=== PATIENT | male | born 1940 | race American Indian/Alaskan Native ===

== ENCOUNTER 2018-05-17 19:56 | Emergency (ER) | payer MEDICARE ==
[2018-05-17 21:39] LABS: Basophils # (Auto) 0.2 K/mm3 (0.0-0.1); Basophils % (Auto) 2.3 % (0.0-1.8); Eosinophils # (Auto) 0.3 K/mm3 (0.0-0.4); Eosinophils % (Auto) 4.2 % (0.0-4.3); Hemoglobin 12.2 gm/dl (11.8-15.2); Lymphocytes # (Auto) 2.7 K/mm3 (1.2-5.4); Lymphocytes % (Auto) 39.5 % (13.4-35.0); Mean Corpuscular HGB Conc 33 % (32-34); Mean Corpuscular Volume 84 fl (84-94); Monocytes # (Auto) 0.4 K/mm3 (0.0-0.8); Monocytes % (Auto) 6.4 % (0.0-7.3); Platelet Count 271 K/mm3 (140-440); Red Blood Count 4.42 M/mm3 (3.65-5.03); Red Cell Distribution Width 14.8 % (13.2-15.2)
[2018-05-17 22:15] LABS: Calcium 9.1 mg/dL (8.4-10.2)
[2018-05-17] MEDS ORDERED: NACL 0.9% IR ONE (23:38)
--- NOTE | 2018-05-17 23:39 | Emergency Department Report ---
ED General Adult HPI - General Chief complaint: Urogenital-Male Stated complaint: RECENTLY HAD A STROKE/URINATING BLOOD Time Seen by Provider: 05/17/18 23:25 Source: patient, family, RN notes reviewed Mode of arrival: Ambulatory Limitations: No Limitations - History of Present Illness Initial comments: This is a 77-year-old gentleman. The patient follows with the [facility]. He has a remote history of stroke, reported pancreatic cancer, hypertension and currently takes Plavix and aspirin. He presents to the emergency room with a complaint of painless hematuria. It's been going on for the past day or so. He denies headache, neck pain, chest pain, abdominal pain, shortness of breath, vomiting, dysuria, frequency, testicular pain. He denies hematemesis, bright red blood per rectum. -: Gradual, days(s) Severity scale (0 -10): 0 Consistency: constant Improves with: none Worsens with: none Associated Symptoms: denies other symptoms - Related Data Allergies Allergy/AdvReac Type Severity Reaction Status Date / Time No Known Allergies Allergy Unverified 05/17/18 20:59 ED Review of Systems ROS: Stated complaint: RECENTLY HAD A STROKE/URINATING BLOOD Other details as noted in HPI Constitutional: denies: fever Eyes: denies: vision change ENT: denies: epistaxis Respiratory: denies: cough Cardiovascular: denies: chest pain Gastrointestinal: denies: abdominal pain, nausea, vomiting Genitourinary: hematuria. denies: urgency, dysuria Musculoskeletal: denies: back pain Skin: denies: lesions Neurological: weakness (chronic weakness) ED Past Medical Hx - Past Medical History Hx CVA: Yes (02/2018) Additional medical history: pancreatic CA - Social History Smoking Status: Former Smoker ED Physical Exam - General Limitations: No Limitations General appearance: alert, in no apparent distress - Head Head exam: Present: atraumatic, normocephalic - Eye Eye exam: Present: normal appearance, EOMI. Absent: nystagmus - ENT ENT exam: Present: normal exam, normal orophraynx, mucous membranes moist, normal external ear exam - Neck Neck exam: Present: normal inspection, full ROM. Absent: tenderness, meningismus - Respiratory Respiratory exam: Present: normal lung sounds bilaterally. Absent: respiratory distress - Cardiovascular Cardiovascular Exam: Present: regular rate, normal rhythm, normal heart sounds. Absent: bradycardia, tachycardia, irregular rhythm, systolic murmur, diastolic murmur, rubs, gallop - GI/Abdominal GI/Abdominal exam: Present: soft. Absent: distended, tenderness, guarding, rebound, rigid, pulsatile mass - Rectal Rectal exam: Present: deferred - exam: Present: normal inspection (chaperoned by nurse Perfecto Rich), other (blood is noted coming from the urethral meatus) External exam: Present: normal external exam, other (there is no testicular tenderness. There is normal testicular lie bilaterally. There is normal cremasteric reflex bilaterally.). Absent: erythema, swelling, lesions, lacerations, ecchymosis - Extremities Exam Extremities exam: Present: normal inspection, full ROM, other (2+ pulses noted in the bilateral upper, lower extremities. Compartments soft. No long bony tenderness. The pelvis is stable.). Absent: pedal edema, joint swelling, calf tenderness - Back Exam Back exam: Present: normal inspection, full ROM. Absent: tenderness, CVA tenderness (R), paraspinal tenderness, vertebral tenderness - Neurological Exam Neurological exam: Present: alert, oriented X3, CN II-XII intact, normal gait, other (Extraocular movements intact. Tongue midline. No facial droop. Facial sensation intact to light touch in the V1, V2, V3 distribution bilaterally. 5 and 5 strength in 4 extremities.. Sensation is intact to light touch in 4 extremities.). Absent: motor sensory deficit - Psychiatric Psychiatric exam: Present: normal affect, normal mood - Skin Skin exam: Present: warm, dry, intact, normal color. Absent: rash ED Course Vital Signs 05/17/18 05/17/18 05/17/18 20:52 22:53 22:56 Temperature 98.2 F Pulse Rate 80 74 73 Respiratory 18 18 20 Rate Blood Pressure 128/67 155/79 O2 Sat by Pulse 98 99 99 Oximetry 05/17/18 05/17/18 05/17/18 23:00 23:16 23:30 Temperature Pulse Rate 80 75 76 Respiratory 20 18 14 Rate Blood Pressure 133/88 133/88 133/88 O2 Sat by Pulse 98 98 98 Oximetry 05/17/18 05/18/18 05/18/18 23:46 00:00 00:16 Temperature Pulse Rate 79 Respiratory 10 L 9 L 21 Rate Blood Pressure 145/75 141/83 145/75 O2 Sat by Pulse 99 98 98 Oximetry 05/18/18 05/18/18 05/18/18 00:30 00:46 01:00 Temperature Pulse Rate 82 73 77 Respiratory 22 13 18 Rate Blood Pressure 134/81 141/83 134/74 O2 Sat by Pulse 98 97 97 Oximetry 05/18/18 05/18/18 05/18/18 01:16 01:30 01:46 Temperature Pulse Rate 78 Respiratory 15 11 L 15 Rate Blood Pressure 134/74 134/74 118/86 O2 Sat by Pulse 97 Oximetry - Reevaluation(s) Reevaluation #1: 05/18/18 03:03 Urinalysis is reviewed and appreciated, history, physical, urinalysis not suggestive of infectious etiology ED Medical Decision Making - Lab Data Result diagrams: 05/17/18 21:10 05/17/18 21:10 Vital Signs 05/17/18 05/17/18 05/17/18 20:52 22:53 22:56 Temperature 98.2 F Pulse Rate 80 74 73 Respiratory 18 18 20 Rate Blood Pressure 128/67 155/79 O2 Sat by Pulse 98 99 99 Oximetry 05/17/18 05/17/18 05/17/18 23:00 23:16 23:30 Temperature Pulse Rate 80 75 76 Respiratory 20 18 14 Rate Blood Pressure 133/88 133/88 133/88 O2 Sat by Pulse 98 98 98 Oximetry 05/17/18 05/18/18 05/18/18 23:46 00:00 00:16 Temperature Pulse Rate 79 Respiratory 10 L 9 L 21 Rate Blood Pressure 145/75 141/83 145/75 O2 Sat by Pulse 99 98 98 Oximetry 05/18/18 05/18/18 05/18/18 00:30 00:46 01:00 Temperature Pulse Rate 82 73 77 Respiratory 22 13 18 Rate Blood Pressure 134/81 141/83 134/74 O2 Sat by Pulse 98 97 97 Oximetry 05/18/18 05/18/18 05/18/18 01:16 01:30 01:46 Temperature Pulse Rate 78 Respiratory 15 11 L 15 Rate Blood Pressure 134/74 134/74 118/86 O2 Sat by Pulse 97 Oximetry Lab Results 05/17/18 05/17/18 05/17/18 Range/Units 00:45 21:10 21:10 WBC 6.8 (4.5-11.0) K/mm3 RBC 4.42 (3.65-5.03) M/mm3 Hgb 12.2 (11.8-15.2) gm/dl Hct 37.0 (35.5-45.6) % MCV 84 (84-94) fl MCH 28 (28-32) pg MCHC 33 (32-34) % RDW 14.8 (13.2-15.2) % Plt Count 271 (140-440) K/mm3 Lymph % (Auto) 39.5 H (13.4-35.0) % [place] % (Auto) 6.4 (0.0-7.3) % Eos % (Auto) 4.2 (0.0-4.3) % Baso % (Auto) 2.3 H (0.0-1.8) % Lymph # 2.7 (1.2-5.4) K/mm3 [place] # 0.4 (0.0-0.8) K/mm3 Eos # 0.3 (0.0-0.4) K/mm3 Baso # 0.2 H (0.0-0.1) K/mm3 Seg Neutrophils % 47.6 (40.0-70.0) % Seg Neutrophils # 3.2 (1.8-7.7) K/mm3 Sodium 139 (137-145) mmol/L Potassium 3.9 (3.6-5.0) mmol/L Chloride 101.5 (98-107) mmol/L Carbon Dioxide 24 (22-30) mmol/L Anion Gap 17 mmol/L BUN 16 (9-20) mg/dL Creatinine 1.3 (0.8-1.5) mg/dL Estimated GFR 53 ml/min BUN/Creatinine Ratio 12 % Glucose 121 H (75-100) mg/dL Calcium 9.1 (8.4-10.2) mg/dL Total Creatine Kinase (55-170) units/L Urine Color Red (Yellow) Urine Turbidity Cloudy (Clear) Urine pH 5.0 (5.0-7.0) Ur Specific [place] 1.024 (1.003-1.030) Urine Protein 100 mg/dl (Negative) mg/dL Urine Glucose (UA) 50 (Negative) mg/dL Urine Ketones Tr (Negative) mg/dL Urine Blood Lg (Negative) Urine Nitrite Neg (Negative) Urine Bilirubin Neg (Negative) Urine Urobilinogen < 2.0 (<2.0) mg/dL Ur Leukocyte Esterase Neg (Negative) Urine WBC (Auto) 31.0 H (0.0-6.0) /HPF Urine RBC (Auto) > 182.0 (0.0-6.0) /HPF 05/18/18 Range/Units 00:28 WBC (4.5-11.0) K/mm3 RBC (3.65-5.03) M/mm3 Hgb (11.8-15.2) gm/dl Hct (35.5-45.6) % MCV (84-94) fl MCH (28-32) pg MCHC (32-34) % RDW (13.2-15.2) % Plt Count (140-440) K/mm3 Lymph % (Auto) (13.4-35.0) % [place] % (Auto) (0.0-7.3) % Eos % (Auto) (0.0-4.3) % Baso % (Auto) (0.0-1.8) % Lymph # (1.2-5.4) K/mm3 [place] # (0.0-0.8) K/mm3 Eos # (0.0-0.4) K/mm3 Baso # (0.0-0.1) K/mm3 Seg Neutrophils % (40.0-70.0) % Seg Neutrophils # (1.8-7.7) K/mm3 Sodium (137-145) mmol/L Potassium (3.6-5.0) mmol/L Chloride (98-107) mmol/L Carbon Dioxide (22-30) mmol/L Anion Gap mmol/L BUN (9-20) mg/dL Creatinine (0.8-1.5) mg/dL Estimated GFR ml/min BUN/Creatinine Ratio % Glucose (75-100) mg/dL Calcium (8.4-10.2) mg/dL Total Creatine Kinase 215 H (55-170) units/L Urine Color (Yellow) Urine Turbidity (Clear) Urine pH (5.0-7.0) Ur Specific [place] (1.003-1.030) Urine Protein (Negative) mg/dL Urine Glucose (UA) (Negative) mg/dL Urine Ketones (Negative) mg/dL Urine Blood (Negative) Urine Nitrite (Negative) Urine Bilirubin (Negative) Urine Urobilinogen (<2.0) mg/dL Ur Leukocyte Esterase (Negative) Urine WBC (Auto) (0.0-6.0) /HPF Urine RBC (Auto) (0.0-6.0) /HPF - Medical Decision Making Differential diagnosis, including but not limited to: Bladder cancer, hemor rhagic cystitis Assessment and plan: 77-year-old gentleman with painless gross hematuria. Patient is afebrile, with reassuring vital signs. The bladder is irrigated by nursing team, and hematuria is clearing up. The patient is able to urinate and is not clinically obstructed. He is counseled to follow up with his outpatient urologist to exclude cancer, tumor, malignancy. Explained to patient and family that he will need urgent screening to exclude urologic malignancy. Critical care attestation.: If time is entered above; I have spent that time in minutes in the direct care of this critically ill patient, excluding procedure time. ED Disposition Clinical Impression: Hematuria Qualifiers: Hematuria type: gross Qualified Code(s): R31.0 - Gross hematuria Disposition: DC-01 TO HOME OR SELFCARE Is pt being admited?: No Does the pt Need Aspirin: No Condition: Stable Instructions: Acute Hematuria (ED) Additional Instructions: Continue outpatient medications. Follow-up with your urologist within the next 7-10 days. Not following up as recommended a resultant undiagnosed cancer, tumor, malignancy. Return to the emergency room right away with projectile vomiting, change in mental status, confusion, vomiting blood, defecating blood, new, worsened or different symptoms. Referrals: [facility] [Provider Group] - 7-10 days
[2018-05-18 01:22] LABS: Bilirubin,Urine NEG (Negative); Blood,Urine LG (Negative); Color,Urine Red (Yellow); RBC,Urine > 182.0 /HPF (0.0-6.0); Urobilinogen,Urine < 2.0 mg/dL (<2.0)
[2018-05-18 01:59] VITALS: BP 118/86
== END 2018-05-18 03:19 | disposition home or self-care (01) ==
LOC: ED 19:56
DX: R31.9 Hematuria, unspecified (principal); I10 Essential (primary) hypertension; Z86.73 Personal history of transient ischemic attack (TIA), and cerebral infarction without residual deficits; Z87.891 Personal history of nicotine dependence; Z79.82 Long term (current) use of aspirin; Z85.07 Personal history of malignant neoplasm of pancreas
CPT/HCPCS: 36415; 80048; 81001; 82550; 85025; 87076; 87086; 87186